=== PATIENT | male | born 1995 | race Caucasian/White ===

== ENCOUNTER 2018-01-02 22:30 | Emergency (ER) | payer OTHER ==
[~2018-01-02] VITALS: Ht 177.8 cm; Wt 77.1 kg
[~2018-01-02 22:30] MED LIST: NOHOMEMEDICATIONS; ULTRAM 50MG TAB50 MG PO
[2018-01-02 22:53] LABS: URINE BILIRUBIN NEGATIVE (Negative); URINE BLOOD NEGATIVE (Negative); URINE CLARITY CLEAR; URINE COLOR YELLOW; URINE GLUCOSE-RANDOM NEGATIVE (Negative); URINE KETONES TRACE (Negative); URINE LEUKOCYTES-REFLEX NEGATIVE (Negative); URINE NITRITE-REFLEX NEGATIVE (Negative); URINE PROTEIN NEGATIVE (Negative); URINE SPECIFIC GRAVITY 1.015 (1.005-1.030)
[2018-01-02] MEDS ORDERED: KEFLEX500 M1 PO (23:10)
[2018-01-02] MEDS ORDERED: BACTRIM DS TAB1 EACH PO (23:10)
[2018-01-02 23:23] VITALS: BP 112/78
== END 2018-01-02 23:24 | disposition home or self-care (01) ==
LOC: M.ERS 22:30
PROVIDERS: Nurse Practitioner Family
DX: S30.811A Abrasion of abdominal wall, initial encounter (principal); L08.9 Local infection of the skin and subcutaneous tissue, unspecified; Z96.642 Presence of left artificial hip joint; V23.4XXA Motorcycle driver injured in collision with car, pick-up truck or van in traffic accident, initial encounter; Y93.55 Activity, bike riding; Y92.89 Other specified places as the place of occurrence of the external cause; Y99.8 Other external cause status

== ENCOUNTER 2018-02-23 08:59 | Emergency (ER) | payer OTHER ==
[~2018-02-23] VITALS: Ht 180.3 cm; Wt 81.7 kg
[~2018-02-23 08:59] MED LIST changes: +BACTRIM DS TAB1 EACH PO; +KEFLEX500 M1 PO
[2018-02-23] MEDS ORDERED: NORCO 5-325 TA1 EACH PO (09:48)
[2018-02-23 09:55] VITALS: BP 150/78
== END 2018-02-23 09:56 | disposition home or self-care (01) ==
LOC: M.ERS 08:59
DX: S20.212A Contusion of left front wall of thorax, initial encounter (principal); F17.200 Nicotine dependence, unspecified, uncomplicated; Z96.642 Presence of left artificial hip joint; S20.211A Contusion of right front wall of thorax, initial encounter; V29.9XXA Motorcycle rider (driver) (passenger) injured in unspecified traffic accident, initial encounter; Y93.55 Activity, bike riding; Y92.89 Other specified places as the place of occurrence of the external cause; Y99.8 Other external cause status

== ENCOUNTER 2018-10-10 11:39 | Emergency (ER) | payer OTHER ==
[~2018-10-10] VITALS: Ht 177.8 cm; Wt 83.9 kg
[~2018-10-10 11:39] MED LIST changes: +NORCO 5-325 TA1 EACH PO
[2018-10-10] MEDS ORDERED: AMOXICILLIN 50500 MG PO (12:21)
[2018-10-10] MEDS ORDERED: TRAMADOL 50 MG50 MG PO (12:21)
[2018-10-10 12:35] VITALS: BP 155/94
== END 2018-10-10 12:36 | disposition home or self-care (01) ==
LOC: M.ERS 11:39
DX: K08.89 Other specified disorders of teeth and supporting structures (principal); Z96.642 Presence of left artificial hip joint